=== PATIENT | male | born 1950 | race Caucasian/White ===

== ENCOUNTER → 2017-08-22 | Outpatient (CLI) | payer MEDICARE | LOC: LAB.O 09:47 | PROVIDERS: ATTEND Nurse Practitioner Family | DX: I10 Essential (primary) hypertension (principal); Z13.220 Encounter for screening for lipoid disorders; Z12.5 Encounter for screening for malignant neoplasm of prostate | CPT/HCPCS: 36415; 80053; 80061; 85025; G0103 ==

== ENCOUNTER → 2018-08-02 | Outpatient (CLI) | payer MEDICARE ==
--- NOTE | 2018-08-02 15:43 | RAD ---
EXAM DESCRIPTION: Chest,2 Views CLINICAL HISTORY: SHORTNESS OF BREATH COMPARISON: None TECHNIQUE: PA/lateral FINDINGS: Heart size is normal with normal pulmonary vascularity. Small calcified granuloma in the right upper lobe. Wedgelike density is seen in the left paracardiac regions bilaterally consistent with discoid atelectasis. Broader area of increased density in the right lung base extending peripherally from the hilar region. Lateral view shows increased density overlying the heart suggesting minimal infiltrate in the right middle lobe. No pleural effusion or pneumothorax. Lateral view shows intact sternum and T-spine. IMPRESSION: Discoid atelectasis in the lingula and peripheral left lower lobe. Patchy infiltrate in the right middle lobe. Electronically signed by: Lico High MD 08/02/2018 3:41 PM CDT
== END ==
LOC: RAD 10:31
PROVIDERS: ATTEND Nurse Practitioner Family
DX: J98.11 Atelectasis (principal)

== ENCOUNTER → 2018-08-06 | Outpatient (CLI) | payer MEDICARE | DX: Z00.00 Encounter for general adult medical examination without abnormal findings (principal) ==

== ENCOUNTER → 2018-08-22 | Outpatient (CLI) | payer MEDICARE ==
--- NOTE | 2018-08-22 12:01 | RAD ---
EXAM DESCRIPTION: Chest,2 Views CLINICAL HISTORY: ABNORMAL CXR COMPARISON: Previous chest x-ray August 02, 2018 TECHNIQUE: PA/lateral FINDINGS: Right middle lobe infiltrate or partial volume loss appears improved. Heart size is prominent with normal pulmonary vascularity. No pleural effusion or pneumothorax. Discoid atelectasis in the bilateral paracardiac regions remains, similar to previous. Lungs are otherwise clear with no consolidating infiltrate. Pleural thickening on the left appears chronic. Lateral view shows intact sternum and T-spine. IMPRESSION: Improved appearance of right middle lobe. Persistent discoid atelectasis in the paracardiac regions bilaterally. Electronically signed by: Lico High MD 08/22/2018 11:58 AM CDT
== END ==
LOC: YCFC.O 11:18
PROVIDERS: ATTEND Nurse Practitioner Family
DX: R93.89 Abnormal findings on diagnostic imaging of other specified body structures (principal); J98.11 Atelectasis

== ENCOUNTER 2019-01-23 05:06 | Day surgery (SDC) | payer MEDICARE ==
[2019-01-23] MEDS ORDERED: MIDAZOLAM INJ 2 MG/2 ML VIAL ONE (06:52)
[2019-01-23] MEDS ORDERED: PROPARACAINE 0.5% OPHTH SOL 15 ML BTTL RIGHT_EYE ONE (07:47)
[2019-01-23] MEDS ORDERED: LIDOCAINE 1% MPF 2 ML VIAL INJ ONE (07:50)
[2019-01-23] MEDS ORDERED: MOXIFLOXACIN HCL (OPHTH) 1 DROP DROPS RIGHT_EYE ONE ×2 (07:53→08:01)
[2019-01-23] MEDS ORDERED: BRIMONIDINE 0.2% OPHTH DROPS RIGHT_EYE ONE ×2 (07:54→08:04)
[2019-01-23] MEDS ORDERED: DEXAMETHASONE 0.1% OPHTH SOL 1 DROP RIGHT_EYE ONE ×2 (07:54→08:04)
[2019-01-23] MEDS ORDERED: TOBRAMYCIN SULF 0.3 % OPHT SOL 1 DROP RIGHT_EYE ONE ×2 (07:54→08:04)
== END 2019-01-23 08:40 | disposition home or self-care (01) ==
LOC: AMB 05:06
PROVIDERS: ATTEND Ophthalmology
DX: H25.11 Age-related nuclear cataract, right eye (principal); I10 Essential (primary) hypertension; Z79.899 Other long term (current) drug therapy
CPT/HCPCS: 00142; 66984; J2250

== ENCOUNTER → 2019-02-24 | Outpatient (CLI) | payer MEDICARE ==
--- NOTE | 2019-02-24 16:41 | RAD ---
EXAM DESCRIPTION: Chest,2 Views CLINICAL HISTORY: cough COMPARISON: Previous study August 22, 2018 TECHNIQUE: PA/lateral FINDINGS: Heart is prominent with normal pulmonary vascularity. No pleural effusion or pneumothorax. Discoid atelectasis in the pericardiac regions bilaterally. Lungs are otherwise clear with no consolidating infiltrate. Left rib fractures are present with extrapleural thickening on the left. These findings were seen on the previous study. Lateral view shows intact sternum and T-spine. IMPRESSION: Bibasilar discoid atelectasis. Electronically signed by: Lico High MD 02/24/2019 4:40 PM [facility]
== END ==
LOC: YCFC.O 12:26
PROVIDERS: ATTEND Nurse Practitioner
DX: J98.11 Atelectasis (principal); R05 Cough

== ENCOUNTER 2019-09-05 11:03 | Emergency (ER) | payer MEDICARE ==
[2019-09-05] MEDS ORDERED: ACETAMINOPHEN 500 MG TAB PO ONE ×2 (11:37→11:38)
[2019-09-05] MEDS ORDERED: SODIUM CHLORIDE 0.9% 1000ML 1,000 ML IVS ONE ×2 (11:37→11:38)
[2019-09-05] MEDS ORDERED: SODIUM CHLORIDE 0.9% (FLUSH) 10 ML SYG IV PRN (11:38)
--- NOTE | 2019-09-05 11:56 | RAD ---
EXAM DESCRIPTION: Chest,1 View CLINICAL HISTORY: fever and cough COMPARISON: 24 February 2019 TECHNIQUE: AP portable semierect FINDINGS: Atelectatic type lung disease is observed in the lung bases. There is been a minimal interval improvement in aeration the chest since the previous exam. The heart is within range of normal. No pleural fluid is seen. IMPRESSION: Basilar atelectatic type lung disease is observed. There is been a mild interval improvement since the previous exam. Electronically signed by: Alvin Roberson MD 09/05/2019 11:55 AM CDT
--- NOTE | 2019-09-05 12:58 | ED.PDOC ---
History of Present Illness - General Chief Complaint: Fever Stated Complaint: fever Time Seen by Provider: 09/05/19 11:30 Source: patient, RN notes reviewed, Vital Signs reviewed, family - Exam Limitations: no limitations - History of Present Illness Initial Comments: Patient presents with complaints of fever, headache and right jaw pain at the site of an infected tooth. The symptoms started yesterday and have been worsening. Patient has not taken anything for the headache or the fever. The jaw pain is throbbing in nature. Is worse with drinking cold water trying to eat. Nothing makes it better. The pain radiates down toward his neck. Timing/Duration: 24 hours Severity: moderate Improving Factors: nothing Worsening Factors: cold therapy, eating Associated Symptoms: fever/chills, headaches Allergies/Adverse Reactions: Allergies NO KNOWN ALLERGY Allergy (Verified 09/05/19 11:30) Home Medications: Ambulatory Orders Losartan Potassium [Cozaar] 50 mg PO BEDTIME 01/23/19 Clindamycin HCl [Cleocin] 300 mg PO Q6H #40 capsule 09/05/19 Review of Systems - Review of Systems Constitutional: States: see HPI, chills, fever, malaise. Denies: weakness EENTM: States: see HPI, mouth pain, mouth swelling. Denies: eye pain, blurred vision, double vision, ear pain, nose pain Respiratory: States: no symptoms reported. Denies: cough, short of breath, wheezing Cardiology: States: no symptoms reported. Denies: chest pain, palpitations, syncope Genitourinary: States: no symptoms reported Musculoskeletal: States: no symptoms reported. Denies: back pain, joint pain, neck pain Skin: States: no symptoms reported. Denies: change in color, rash Neurological: States: headache. Denies: numbness, paresthesia Endocrine: States: no symptoms reported Hematologic/Lymphatic: States: no symptoms reported All other Systems: No Change from Baseline Past Medical History (General) - Patient Medical History Hx MRSA: No - Vaccination History Hx Tetanus, Diphtheria Vaccination: - UNKNOWN - Social History Hx Tobacco Use: No Hx Alcohol Use: No Hx Substance Use: No Hx Substance Use Treatment: No Hx Depression: No - Female History Patient is a Female of Child Bearing Age (10 -59 yrs old): No Patient : No Family Medical History - Family History Mother Family History: Unknown Living Status: Unknown Physical Exam - Physical Exam General Appearance: Alert, Anxious, Well Developed, Well Groomed, Well Hydrated, Well Nourished Eye Exam: bilateral normal Ears, Nose, Throat: hearing grossly normal, other - Patient with multiple dental caries. In tooth #30, there is tenderness to palpation. There is no swelling of the gumline. There is surrounding redness. Neck: non-tender, full range of motion, supple Respiratory: chest non-tender, lungs clear, rhonchi - Diffusely throughout Cardiovascular/Chest: normal peripheral pulses, no murmur, tachycardia Peripheral Pulses: radial,right: 2+, radial,left: 2+ Gastrointestinal/Abdominal: normal bowel sounds, non tender, soft Back Exam: normal inspection, no CVA tenderness, no vertebral tenderness Extremity: normal range of motion, non-tender, normal inspection, no pedal edema Neurologic: body former II-XII nml as tested, no motor/sensory deficits, alert, normal mood/affect, oriented x 3 Skin Exam: normal color, warm/dry Lymphatic: no adenopathy Progress - Progress Progress: Differential diagnosis: COVID-19, pneumonia, dental abscess, gingivitis among others 09/05/19 15:53 Patient's work-up is relatively unremarkable. Chest x-ray does not show pneumonia. Patient does not have covered by lab testing. Patient does have significant gingivitis with exquisite tenderness to palpation over tooth #30 consistent with a dental abscess. He does not have any elevation of the floor of his mouth and therefore I am not concerned about Ludewig's angina. We will start him on clindamycin and discharged home. I discussed this plan of care with the patient and his . Because the fact that the patient is feeling much better with the reduction of his fever and the headache is resolved on its own, they are comfortable with the plan of care and are in agreement. Carmelo Thompson M.D. #[id number] - Results/Orders Results/Orders: EXAM DESCRIPTION: Chest,1 View CLINICAL HISTORY: fever and cough COMPARISON: 24 February 2019 TECHNIQUE: AP portable semierect FINDINGS: Atelectatic type lung disease is observed in the lung bases. There is been a minimal interval improvement in aeration the chest since the previous exam. The heart is within range of normal. No pleural fluid is seen. IMPRESSION: Basilar atelectatic type lung disease is observed. There is been a mild interval improvement since the previous exam. Electronically signed by: Alvin Roberson MD 09/05/2019 11:55 AM 09/05/19 11:38 IV Care:Saline Lock per Protoc QSHIFT Sodium Chloride 0.9% (Flush) [Saline Flush Syringe] 10 ml IV PRN PRN EKG Stat Pulse Ox Stat 09/05/19 11:44 STREP A SCREEN CULTURE Stat 09/05/19 12:30 BLOOD CULTURE Stat 09/05/19 14:00 URINE CULTURE W/COLONY COUNT Stat Laboratory Results - last 24 hr 09/05/19 09/05/19 09/05/19 11:44 11:44 11:44 WBC 9.7 RBC 4.90 Hgb 15.0 Hct 44.0 MCV 89.9 MCH 30.7 MCHC 34.1 RDW 13.1 Plt Count 115 L MPV 8.6 Absolute Neuts (auto) 8.70 H Absolute Lymphs (auto) 0.20 L Absolute Monos (auto) 0.80 Absolute Eos (auto) 0.00 Absolute Basos (auto) 0.00 Neutrophils % 89.8 H Lymphocytes % 1.6 L Monocytes % 8.5 Eosinophils % 0.0 L Basophils % 0.1 PT INR PTT (SP) D-Dimer, Quantitative Sodium 129 L Potassium 3.4 L Chloride 94 L Carbon Dioxide 23 Anion Gap 15.4 BUN 11 Creatinine 1.10 BUN/Creatinine Ratio 10.0 Random Glucose 230 H Serum Osmolality 265.6 L Lactic Acid Calcium 8.7 Total Bilirubin 0.8 AST 31 ALT 24 Alkaline Phosphatase 84 Creatine Kinase 24 L CK-MB (CK-2) 0.9 CK-MB (CK-2) % Not Reportable Troponin I 0.02 Serum Total Protein 7.2 Albumin 3.5 Globulin 3.7 H Albumin/Globulin Ratio 0.9 L Urine Color Urine Appearance Urine pH Ur Specific Erving Urine Protein Urine Glucose (UA) Urine Ketones Urine Blood Urine Nitrite Urine Bilirubin Urine Urobilinogen Ur Leukocyte Esterase Urine RBC Urine WBC Ur Epithelial Cells Urine Bacteria Group A Strep Rapid Negative 09/05/19 09/05/19 09/05/19 11:44 11:44 13:48 WBC RBC Hgb Hct MCV MCH MCHC RDW Plt Count MPV Absolute Neuts (auto) Absolute Lymphs (auto) Absolute Monos (auto) Absolute Eos (auto) Absolute Basos (auto) Neutrophils % Lymphocytes % Monocytes % Eosinophils % Basophils % PT 11.3 H INR 1.14 PTT (SP) 28.1 D-Dimer, Quantitative Cancelled Sodium Potassium Chloride Carbon Dioxide Anion Gap BUN Creatinine BUN/Creatinine Ratio Random Glucose Serum Osmolality Lactic Acid 3.4 H* 1.7 Calcium Total Bilirubin AST ALT Alkaline Phosphatase Creatine Kinase CK-MB (CK-2) CK-MB (CK-2) % Troponin I Serum Total Protein Albumin Globulin Albumin/Globulin Ratio Urine Color Urine Appearance Urine pH Ur Specific Erving Urine Protein Urine Glucose (UA) Urine Ketones Urine Blood Urine Nitrite Urine Bilirubin Urine Urobilinogen Ur Leukocyte Esterase Urine RBC Urine WBC Ur Epithelial Cells Urine Bacteria Group A Strep Rapid 09/05/19 14:00 WBC RBC Hgb Hct MCV MCH MCHC RDW Plt Count MPV Absolute Neuts (auto) Absolute Lymphs (auto) Absolute Monos (auto) Absolute Eos (auto) Absolute Basos (auto) Neutrophils % Lymphocytes % Monocytes % Eosinophils % Basophils % PT INR PTT (SP) D-Dimer, Quantitative Sodium Potassium Chloride Carbon Dioxide Anion Gap BUN Creatinine BUN/Creatinine Ratio Random Glucose Serum Osmolality Lactic Acid Calcium Total Bilirubin AST ALT Alkaline Phosphatase Creatine Kinase CK-MB (CK-2) CK-MB (CK-2) % Troponin I Serum Total Protein Albumin Globulin Albumin/Globulin Ratio Urine Color Yellow Urine Appearance Clear Urine pH 6.0 Ur Specific Erving <= 1.005 Urine Protein Negative Urine Glucose (UA) Negative Urine Ketones Negative Urine Blood Trace-lysed H Urine Nitrite Negative Urine Bilirubin Negative Urine Urobilinogen 0.2 Ur Leukocyte Esterase Negative Urine RBC 0-1 Urine WBC 0-1 Ur Epithelial Cells 0-1 Urine Bacteria 0 Group A Strep Rapid Departure - Departure Clinical Impression: Gingivitis, Dental caries, Dental abscess Fever Qualifiers: Fever type: unspecified Qualified Code(s): R50.9 - Fever, unspecified Time of Disposition: 16:00 Disposition: Discharge to Home or Self Care Condition: Good Departure Forms: ED Discharge - Pt. Copy, Patient Portal Self Enrollment Instructions: DI for Fever (Symptom) -- Adult, Tooth Abscess (DC), Dental Pain (DC) Diet: resume usual diet Activity: increase activity as tolerated Referrals: Lashawn Jordan FNP [Primary Care Provider] - 1-5 Days Prescriptions: Clindamycin HCl [Cleocin] 300 mg PO Q6H #40 capsule Home Medications: Ambulatory Orders Losartan Potassium [Cozaar] 50 mg PO BEDTIME 01/23/19 Clindamycin HCl [Cleocin] 300 mg PO Q6H #40 capsule 09/05/19
[2019-09-05] MEDS ORDERED: CLINDAMYCIN PHOSPHATE 150 MG/ML VIAL IM ONE (16:03)
[2019-09-05 17:03] VITALS: BP 142/86; TEMP 100; O2SAT 96
== END 2019-09-05 17:00 | disposition home or self-care (01) ==
LOC: ER 11:03
DX: K05.10 Chronic gingivitis, plaque induced (principal); K02.9 Dental caries, unspecified; K04.7 Periapical abscess without sinus; R50.9 Fever, unspecified; R51 Headache
CPT/HCPCS: 36415; 71045; 80053; 81001; 82550; 82553; 83605; 84484; 85025; 85610; 85730; 87040; 87070; 87086; 87635; 87880; 93005; J3490; J7030

== ENCOUNTER → 2020-04-15 | Outpatient (CLI) | payer MEDICARE | LOC: YCFC.O 16:30 | PROVIDERS: ATTEND Family Medicine | DX: I10 Essential (primary) hypertension (principal); Z13.220 Encounter for screening for lipoid disorders ==